=== PATIENT | female | born 1970 | race Caucasian/White ===

== ENCOUNTER 2023-05-13 14:52 | Outpatient (CLI) | payer BC, SELFPAY | END 2023-05-13 14:53 | disposition home or self-care (01) | LOC: NFLDREF 05-15 06:16 | PROVIDERS: Visit Provider Otolaryngology | DX: J32.9 Chronic sinusitis, unspecified (principal) | CPT/HCPCS: 82784; 82785; 82787; 85025 ==

== ENCOUNTER 2023-05-28 16:00 | Outpatient (CLI) | payer BC, SELFPAY ==
--- NOTE | 2023-05-28 16:00 | CRLHL7_ITS ---
For Patients: As a result of the Century Cures Act, medical imaging exams and procedure reports are released immediately into your electronic medical record. You may view this report before your referring provider. If you have questions, please contact your health care provider. INDICATION: Chronic sinusitis. TECHNIQUE: Noncontrast CT images acquired through the paranasal sinuses. COMPARISON: CT sinus 07/23/2018. FINDINGS: No air-fluid levels to suggest acute sinusitis. Small left maxillary sinus retention cyst has slightly increased in size. Minimal mucosal thickening in the maxillary sinuses. The ethmoid infundibula are widely patent. The frontal sinuses and frontal recesses are clear. Minimal mucosal thickening in the ethmoid air cells. Minimal left sphenoid sinus mucosal thickening. The right sphenoid sinus is clear. The sphenoethmoidal recesses are widely patent. Mild 2 mm leftward nasal septal deviation. No nasal cavity masses. The mastoid air cells are clear. IMPRESSION: 1. Minimal paranasal sinus mucosal disease. No air-fluid levels to suggest acute sinusitis. 2. Small left maxillary sinus retention cyst has slightly increased in size. 3. Mild leftward nasal septal deviation. Please note that all CT scans at this facility use dose modulation, iterative reconstruction, and/or weight-based dosing when appropriate to reduce radiation dose to as low as reasonably achievable. Dictated by Willy Soto MD @ 05/28/2023 4:43:10 PM (Electronically Signed)
== END 2023-05-28 16:01 | disposition home or self-care (01) ==
LOC: CT 16:01
PROVIDERS: PCP Family Medicine; Visit Provider Otolaryngology
DX: J32.9 Chronic sinusitis, unspecified (principal); J32.0 Chronic maxillary sinusitis; J34.2 Deviated nasal septum
CPT/HCPCS: 70486

== ENCOUNTER 2024-06-19 15:23 | Emergency (ER) | payer BC, SELFPAY ==
[2024-06-19 15:28] VITALS: BP 127/77; RESP 18; TEMP 36.8; O2SAT 96; BMI 34.3
--- NOTE | 2024-06-19 16:09 | ED.GENADULT ---
HPI - General Adult General Time Seen by Provider: 16:10 Date Seen: 06/19/24 Chief complaint: Hip Injury/Pain Stated complaint: R hip pain Time Seen by Provider: 06/19/24 16:09 Source: patient and RN notes reviewed Mode of arrival: ambulatory Limitations: no limitations History of Present Illness HPI narrative: This 54-year-old female is coming in with a lump on her right hip that she is concerned about. She started noticing some pain in the right hip area, started to radiate into her buttock and back low back area. The pain does go all the way down the leg to the foot. She feels that outer thigh feels numb and tingly. She has no loss of motor, no bowel or bladder issues. She has had no fevers, no noted trauma. She is a nonsmoker, no history of cancer. She started palpating and found a small little lump in the outer right hip area that is painful. She will feel the pain go all the way down the leg, it is starting to bother her now as she is sitting here, she notices it when she is sitting quite a bit, it is starting to hurt with walking at times. She has no history of sciatica. Her medications are reviewed. She does have a follow-up appointment with her primary care provider in 2 weeks time. Related Data Home Medications ?Medication ?Instructions ?Recorded ?Confirmed cholecalciferol (vitamin D3) 125 5,000 unit PO DAILY 05/09/23 06/19/24 mcg (5,000 unit) capsule cyclobenzaprine 10 mg tablet 10 mg PO .Bedtime as needed PRN 05/09/23 07/04/23 lansoprazole 30 mg capsule,delayed 30 mg PO BID 05/09/23 07/04/23 release mometasone 50 mcg/actuation nasal 2 spray intranasal QDAY 05/09/23 07/04/23 spray potassium chloride 20 mEq 10 meq PO BID 05/09/23 06/19/24 tablet,extended release(part/cryst) triamterene 100 mg capsule 100 mg PO 05/09/23 07/04/23 venlafaxine 37.5 mg 37.5 mg PO DAILY 05/09/23 07/04/23 capsule,extended release 24 hr Previous Rx's ?Medication ?Instructions ?Recorded azithromycin 250 mg tablet See Rx Instructions PO .COMPLEX #6 07/04/23 (Zithromax Z-Carlitos) tabs cyclobenzaprine 10 mg tablet 10 mg PO TID PRN muscle spasm #30 06/19/24 tabs prednisone 20 mg tablet 20 mg PO BID #10 tabs 06/19/24 Allergies Allergy/AdvReac Type Severity Reaction Status Date / Time morphine Allergy Unknown Verified 07/04/23 13:29 Penicillins Allergy Unknown Verified 07/04/23 13:29 amoxicillin Allergy Unknown Uncoded 07/04/23 13:29 Dust Allergy Unknown Uncoded 07/04/23 13:29 Review of Systems Status of ROS: Reports: 6 or more systems reviewed and unremarkable except as noted in History and below Exam Const: Vital Signs, click to edit/add: Vital Signs - 24 hr 06/19/24 15:28 Temperature 98.2 F Respiratory Rate 18 Blood Pressure [Ri ght Upper Arm] 127/77 Pulse Oximetry 96 Oxygen Delivery Me thod Room Air This 54-year-old female was standing in the room when I came in, did inspect her back, buttocks and legs, note no visible difference. She does complain of some midline tenderness along her lower lumbar spine, can palpate into the right buttock and do not feel any mass. I did palpate over her right hip area and could not feel anything. We did have her lie down, she palpated the right anterolateral hip area, there is a small subcutaneous maybe 1 cm mobile non fluctuant lesion, no overlying skin erythema or change. This seems like it might be a small lipoma based on evaluation clinically. She has no pain with internal external rotation of her hip, negative straight leg raising bilaterally. Strength is 5/5 through hip flexors, extensors, knee extension and flexion, dorsiflexion plantar flexion and throughout dorsiflexion and plantar flexion of toes. Skin is warm and dry, distal pulses are normal. She does state it feels somewhat numb and tingly over her right lateral hip skin area but still can feel me touch. Documenting provider has reviewed patient's vital signs: yes Course Course ED Course: Reviewed with patient that I think her skin lesion is unrelated to her leg symptoms, this would seem to be consistent with sciatica. My guess is that she started having the pain in found this little lesion in the hip area, they could have come on coincidentally together. This lesion is quite small, do think that it is appropriate to follow clinically and follow up with her primary care provider. I do not think that this warrants an emergent MSK ultrasound at this time. We will get basic imaging of her lumbar spine. Discussed degenerative disc disease and disc pathology. Ultimately MRI a is the gold standard but she does not need this emergently, has no red flags or emergent clinical changes. Will get an idea if there is degenerative changes with plain x-rays. Will discuss recommendations for pain management with her once we have seen the x-rays. Reevaluation(s) Time of Reevaluation #1: 17:07 Reevaluation #1: Have reviewed with an her imaging report. She was aware that she did have scoliosis. We did discuss the degenerative changes on the x-ray as well. She will try prednisone, Flexeril, baseline Tylenol and supplemental ibuprofen. She is only tried Tylenol No. 3 for pain management ever, has worked for her without significant side effects in the past. We will send her a prescription of Tylenol No. 3 to be filled if her symptoms are problematic or it is taking a bit for the prednisone to kick in. Given her known underlying changes in her back, would consider MRI of this patient in she can discuss this with her primary. Have given her hand written prescription for Tylenol No. 3, 1-2 every 6-8 hours as needed, 10 prescribed without refills. She is aware to substitute Tylenol No. 3 for a Tylenol dose and to not exceed Tylenol dosing restrictions. Vital Signs Vital signs: Initial Vital Signs Temperature 98.2 F 06/19/24 15:28 Temperature Source Temporal Artery Scan 06/19/24 15:28 Respiratory Rate 18 06/19/24 15:28 Blood Pressure 127/77 06/19/24 15:28 Blood Pressure Mean 93 06/19/24 15:28 Blood Pressure Position Sitting 06/19/24 15:28 Pulse Oximetry 96 06/19/24 15:28 Oxygen Delivery Method Room Air 06/19/24 15:28 Vital Signs Temperature 98.2 F 06/19/24 15:28 Respiratory Rate 18 06/19/24 15:28 Blood Pressure 127/77 06/19/24 15:28 Pulse Oximetry 96 06/19/24 15:28 Oxygen Delivery Method Room Air 06/19/24 15:28 Temperature 98.2 F 06/19/24 15:28 Respiratory Rate 18 06/19/24 15:28 Blood Pressure 127/77 06/19/24 15:28 Pulse Oximetry 96 06/19/24 15:28 Oxygen Delivery Method Room Air 06/19/24 15:28 Medical Decision Making Imaging Data XR lumbar spine: Attestation: I have reviewed the pertinent imaging results. Radiologist's impression: Patient: MAXIMO FAUST Facility:?[facility] Patient ID:?[id number] Site Patient ID:?[id number]. Site :?[id number] Study:?XRay-Spine Lumbar -06/19/2024 4:35:22 PM Ordering Physician:?Zen Merrill Final Report: INDICATION: Lower back pain. TECHNIQUE: Lumbar spine 3 view. COMPARISON: None. FINDINGS: Bones: No evident acute fracture or traumatic subluxation. There is a lumbar levoscoliosis measuring 13 degrees between the superior endplate of L1 and inferior endplate of L4. Joints: Multilevel facet arthropathy in the lower lumbar spine. Multilevel anse-la-gajnqohj intervertebral disc height loss most pronounced at L2-3. Soft tissues: Unremarkable. Dictated by Wyatt Gee MD @ 06/19/2024 4:55:45 PM (Electronic Signature) Discharge Plan Discharge Clinical Impression: Lump of skin of lower extremity, Acute right-sided back pain with sciatica Instructions: Lumbar Radiculopathy (ED), Lower Back Exercises (ED), Lipoma (ED), Soft Tissue Mass (ED) Additional Instructions: The small lump area in the skin outside your right hip maybe something like a lipoma. Would continue to monitor this and certainly pointed out at follow-up with your primary care provider. If it is rapidly growing, develops fever with this or redness over the site, do recommend re-evaluation in the interim. Start with prednisone for anti-inflammatory affects, do recommend taking with food. Can use the muscle relaxant per prescription, this may help with pain management as well. Do Tylenol 1000 mg baseline for pain, can supplement with ibuprofen per bottle directions. If these measures are not working, can substitute the Tylenol 3 in for the Tylenol. Both the muscle relaxant and Tylenol No. 3 can be sedating and altering, do not recommend operating machinery or driving while using. Follow-up with your primary care provider as scheduled, do recommend consideration of MRI in your situation as you do have underlying back issues. Activity Level: Activity as Tolerated Prescriptions: New prednisone 20 mg tablet 20 mg PO BID Qty: 10 0RF cyclobenzaprine 10 mg tablet 10 mg PO TID PRN (Reason: muscle spasm) Qty: 30 0RF No Action cholecalciferol (vitamin D3) 125 mcg (5,000 unit) capsule 5,000 unit PO DAILY triamterene 100 mg capsule 100 mg PO lansoprazole 30 mg capsule,delayed release(DR/EC) 30 mg PO BID Rx Instructions: TAKE 30 MINUTES PRIOR TO BREAKFAST OR FIRST MAIN MEAL OF THE DAY potassium chloride 20 mEq tablet,ER particles/crystals 10 meq PO BID mometasone 50 mcg/actuation spray,non-aerosol 2 spray intranasal QDAY Rx Instructions: administer into each nostril venlafaxine 37.5 mg capsule,extended release 24hr 37.5 mg PO DAILY cyclobenzaprine 10 mg tablet 10 mg PO .Bedtime as needed PRN azithromycin [Zithromax Z-Carlitos] 250 mg tablet See Rx Instructions PO .COMPLEX Qty: 6 0RF Rx Instructions: For 250 mg dose pack: take 500 mg today (day 1), then 250 mg for 4 days (days 2-5) PO Follow Up/Referrals: Ivelisse Nina [employer] [Primary Care Provider] - Stand Alone Forms: [employer] Info Instructions
--- NOTE | 2024-06-19 16:19 | CRLHL7_ITS ---
For Patients: As a result of the Century Cures Act, medical imaging exams and procedure reports are released immediately into your electronic medical record. You may view this report before your referring provider. If you have questions, please contact your health care provider. INDICATION: Lower back pain. TECHNIQUE: Lumbar spine 3 view. COMPARISON: None. FINDINGS: Bones: No evident acute fracture or traumatic subluxation. There is a lumbar levoscoliosis measuring 13 degrees between the superior endplate of L1 and inferior endplate of L4. Joints: Multilevel facet arthropathy in the lower lumbar spine. Multilevel tbdq-er-npyqsloa intervertebral disc height loss most pronounced at L2-3. Soft tissues: Unremarkable. Dictated by Wyatt Gee MD @ 06/19/2024 4:55:45 PM (Electronically Signed)
--- OUTSIDE RECORDS SUMMARY | 2024-06-19 17:14 | XMS_ITS | Clinical Summary ---
Author Organization [employer] [facility] Address [place], [place] [address] Care Team Providers Care Pharmacy Informaticist Name Role Phone Ivelisse Nina NP Primary Care Provider [phone] Allergies Active Allergy Reactions Criticality Noted Date Comments House Dust Runny Nose 07/20/2009 Grass Pollen *Unknown 10/18/2023 Mold Extracts Runny Nose 03/30/2014 Penicillins Rash 03/21/2006 Ragweed Pollen *Unknown 10/18/2023 Tree And Shrub Pollen *Unknown 10/18/2023 Medications Medication Sig Dispensed Refills Start Date End Date Status Cholecalciferol, Vitamin D3, (VITAMIN D-3) 5,000 unit tabIndications:Vit calvo D deficiency Take 1 tablet by mouth once daily. 5 days a week 0 10/26/2015 Active fluticasone (50 mcg per actuation) nasal solution (FLONASE)Indicatio ns:Chronic rhinitis Inhale 1 [place] into both nostrils once daily. 1 Bottle 09/01/2019 Active famotidine (PEPCID) 40 mg tabletIndications: Gastroesophageal reflux disease, unspecified whether esophagitis present TAKE 1/2 TABLET(20 MG) BY MOUTH TWICE DAILY 90 Tablet 03/07/2023 Active montelukast (SINGULAIR) 10 mg tabletIndications: Allergic rhinitis due to other allergic trigger, unspecified seasonality TAKE 1 TABLET(10 MG) BY MOUTH AT BEDTIME 90 Tablet 03/07/2023 Active potassium chloride (KLOR-CON M20) 20 mEq extended-release tablet (part/cryst)Indica tions:Hypokalemia Take 1 Tablet (20 mEq) by mouth two times daily with meals. Extra dose with lasix as needed. 180 Tablet 3 10/18/2023 Active triamterene-hydroc hlorothiazide, 37.5-25 mg, (DYAZIDE) 37.5-25 mg capsuleIndications :Peripheral edema Take 1 Capsule by mouth every morning. 90 Capsule 3 10/18/2023 Active ciprofloxacin HCl (CIPRO) 500 mg tabletIndications: Recurrent UTI TAKE 1 TABLET BY MOUTH EVERY DAY AFTER INTERCOURSE 30 Tablet 10/18/2023 Active lansoprazole (PREVACID) 30 mg capsuleIndications :Gastroesophageal reflux disease without esophagitis Take 1 Capsule (30 mg) by mouth two times daily before meals. 180 Capsule 2 01/24/2024 Active predniSONE (DELTASONE) 20 mg tabletIndications: Vestibular neuronitis of both ears 40 mg qd for 3 days, then 20 mg mg qd for 3 days, then 10 mg qd for 4 days. 11 Tablet 05/08/2024 Active meclizine (ANTIVERT) 25 mg tabletIndications: Vertigo Take 1 Tablet (25 mg) by mouth 3 times daily if needed for Vertigo. 30 Tablet 05/08/2024 Active Active Problems Problem Noted Date Diagnosed Date Asthma, mild intermittent 10/18/2023 Hypokalemia 10/18/2023 Allergic rhinitis 10/18/2023 Overview (10/18/2023): on allergy shots every 4 weeks Hyperlipidemia 01/29/2020 Chronic rhinitis 12/01/2018 Family hx colonic polyps 08/14/2014 Vitamin D deficiency 04/12/2014 Mole of skin 08/24/2013 Environmental allergies 08/07/2010 Overview (08/07/2010): On immunotherapy Peripheral edema 06/06/2010 GERD (gastroesophageal reflux disease) 9 Overview (02/11/2020): EGD 01/2009 Reactive gastropathy EGD 01/2020 normal, continue acid medications Hiatal hernia 09/09/2008 Urinary tract infection, site not specified 10/2005 Resolved Problems Problem Noted Date Diagnosed Date Resolved Date Hypokalemia 04/18/2015 05/17/2016 Throat pain 05/01/2010 05/17/2016 Glossitis 12/02/2006 04/07/2009 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 03/21/2006 04/07/2009 Encounters Date Type Department Care Team Description 06/18/2024 Nurse Triage [address] [address] Ivelisse Nina NP Hip Pain/problem 06/09/[address] [address] Ivelisse Nina NP Referral (Insurance referral) 05/08/2024 3:10 PM CDT Office Visit [facility] [address] [place] [address] Jemima Paul PA Dizzy (Fairly constant dizziness since yesterday-no nausea or headaches-yesterday had to be careful so she didn't fall-worse with movement, lightheaded) 05/08/2024 Travel 05/08/2024 Nurse Triage [address] [address] Ivelisse Nina NP Dizziness 03/26/[address] [address] Ivelisse Nina NP Referral from Last 3 Months Immunizations Name Administration Dates Next Due COVID-19 vaccine (Moderna 100mcg/0.5mL) PF, MDV 11/17/2020,10/20/2020 Td (Age >=7 Years) 02/01/1999 Tdap 10/18/2023,10/21/2013 Tuberculin (PPD) 04/06/2009 Family History Medical History Relation Name Comments Diabetes Father Stroke Father Cancer-colon Maternal Aunt 1 Cancer-breast Maternal Aunt 2 Cancer-breast Maternal Grandmother Cancer-breast Mother Heart Disease Paternal Grandfather Relation Name Status Comments Father Renay Sierra's Maternal Aunt 1 Maternal Aunt 2 Maternal Grandmother Mother Alive Paternal Grandfather Social History Tobacco Use Types Packs/Day Years Used Date Smoking Tobacco: Never Smokeless Tobacco: Never Tobacco Cessation:Counseling Given: Yes Alcohol Use Standard Drinks/Week Comments No 0 (1 standard drink = 0.6 oz pur e alcohol) on occassion. PHQ-2 Answer Date Recorded PHQ-2 TOTAL SCORE 0 10/18/2023 Social Connections Answer Date Recorded Do you often feel lonely or isolated from those around you? 0 05/08/2024 Financial Resource Strain Answer Date R ecorded Difficulty of Paying Living Expenses 3 05/08/2024 Difficulty of Paying Living Expenses Not on file 05/08/2024 Food Insecurity Answer Date Recorded Do you worry your food will run out before you are able to buy more? 1 05/08/2024 Transportation Needs Answer Date Record ed Does lack of transportation keep you from medica l appointments? 1 05/08/2024 Does lack of transportation keep you from work, meetings or getting things that you need? 1 05/08/2024 Housing Stability Answer Date Recorded What is your housing situation today? 1 05/08/2024 Sex and Gender Information Value Date Recorded Sex Assigned at Not on file Gender Identity Not on file Sexual Orientation Not on file Obstetrics History Para Term AB IAB SAB Ectopic Multiple Livin g Live Births 6 2 2 0 1 0 1 0 0 2 3 Date Outcome GA Total Labor Labor/2nd/3rd Weight Sex Type Anes PTL Jacquie A1 A5 Name Clin SAB Term Term 05/08 39w 0d 12h 00m/ 2.92 kg (6 lb 7 oz) F C-Secti on Livin g stepnegro beatriz 11/12 40w 0d 12h 00m/ 3.69 kg (8 lb 2 oz) F Induced Livin g rebecc ca 05/19 SPONTAN EOUS Decea sed Last Filed Vital Signs Vital Sign Reading Time Taken Comments Blood Pressure 117/76 05/08/2024 3:20 PM CDT Pulse 86 05/08/2024 3:20 PM CDT Temperature 36.8 ??C (98.2 ??F) 09/04/2023 3:05 PM CS T Respiratory Rate 16 11/01/2022 10:35 AM CDT Oxygen Saturation 96% 05/08/2024 3:20 PM CDT Inhaled Oxygen Concentration - - Weight 95.7 kg (211 lb) 05/08/2024 3:20 PM CDT Height 162.6 cm (5' 4) 10/18/2023 11:44 AM PUBLIC HEALTH DIETITIAN Body Mass Index 36.22 10/18/2023 11:44 AM PUBLIC HEALTH DIETITIAN Plan of Treatment Upcoming Encounters Date Type Department Care Team (Late st Contact Info) Description 07/07/2024 1:55 PM PUBLIC HEALTH DIETITIAN Office Visit [facility] [address] [facility] [place] [phone] Ivelisse Nina NP [address] [facility] [place] [place] [address] 07/21/2024 8:00 AM PUBLIC HEALTH DIETITIAN Appointment [facility] [address] [facility] [address] Health Maintenance Due Date Last Done Comments Zoster (shingles) series for age 50+ (1 of 2) 02/03/2020 COVID-19 vaccine series (2023- season) 2024 07/10/2021, 11/17/2020, 10/20/2020 Influenza for age 50-64 04/19/2024 Mammogram for age 45-75 06/13/2024 06/13/20 23, 06/06/2022, 04/07/2021, Additional history exists BMI (ht and wt on same day) for age 18+ 10/17/2024 10/18/2023, 12/27/2021, 06/14/2021, Additional history exists Depression screening for age 12+ 10/17/2024 10/18/2023, 12/27/2021, 11/09/2020, Additional history exists Lipids for age 45-75 10/17/2028 10/18/2023, 12/27/2021, 01/29/2020, Additional history exists Colonoscopy through age 75 02/09/203002/09, 02/10/2020, 02/10/2020, Additional history exists Tetanus booster 10/17/2033 10/18/2023, 12/2013, 02/01/1999 HIV for age 15-65 Completed 10/22/2022 Hepatitis C screening for age 18-79 Completed 10/22/2022 Tdap Completed 10/18/2023, 10/21/2013 Pneumococcal series for age 6-64 Aged Out No longer eligible based on patient's age to complete this topic Procedures Procedure Name Priority Date/Time Associated Diagnosis Comments CBC WITH AUTO DIFFERENTIAL Routine 05/08/2024 12:00 AM CDT MAGNESIUM Routine 05/08/2024 12:00 AM CDT Vertigo TSH Routine 05/08/2024 12:00 AM CDT Vertigo C-REACTIVE PROTEIN Routine 05/08/2024 12 :00 AM CDT Vertigo COMP METABOLIC PANEL Routine 05/08/2024 12:00 AM CDT Vertigo LIPID PANEL W REFLEX MEASURED LDL Routine 10/18/2023 12:28 PM PUBLIC HEALTH DIETITIAN Routine [facility] XR MAMMO LIBORIO BILAT SCREEN Routine 06/13/2023 3:57 PM CDT Encounter for other screening for malignant neoplasm of breast LC HIV-1/O/2, 4TH GENERATION Routine 10/22/2022 2:11 PM PUBLIC HEALTH DIETITIAN Screening for HIV (human immunodeficiency virus) LC HCV ANTIBODY RFX TO QUANT PCR Routine 10/22/2022 2:11 PM PUBLIC HEALTH DIETITIAN Encounter for hepatitis C screening test for low risk patient COLONOSCOPY SCREENING Routine 02/10/2020 8:54 AM CDT Encounter for screening colonoscopy from Last 3 Months or Most Recently Relevant to Health Maintenance Results * CBC WITH AUTO DIFFERENTIAL (05/08/2024 12:00 AM CDT) WHITE BLOOD CELL COUNT 5.3 3.8 - 10.8 Thousand/u L [facility] RED BLOOD CELL COUNT 4.90 3.80 - 5.10 Million/uL [facility] HEMOGLOBIN 14.5 11.7 - 15.5 g/dL [facility] HEMATOCRIT 44.2 35.0 - 45.0 % [facility] MCV 90.2 80.0 - 100.0 fL [facility] MCH 29.6 27.0 - 33.0 pg [facility] MCHC 32.8 32.0 - 36.0 g/dL [facility] RDW 14.3 11.0 - 15.0 % [facility] PLATELET COUNT 255 140 - 400 Thousand/u L [facility] MPV 10.9 7.5 - 12.5 fL [facility] ABSOLUTE NEUTROPHILS 2,555 1,500 - 7,800 cells/uL [facility] ABSOLUTE LYMPHOCYTES 2,337 850 - 3,900 cells/uL [facility] ABSOLUTE MONOCYTES 307 200 - 950 cells/uL [facility] ABSOLUTE EOSINOPHILS 80 15 - 500 cells/uL [facility] ABSOLUTE BASOPHILS 21 0 - 200 cells/uL [facility] NEUTROPHILS 48.2 % [facility] LYMPHOCYTES 44.1 % [facility] MONOCYTES 5.8 % [facility] EOSINOPHILS 1.5 % [facility] BASOPHILS 0.4 % [facility] 05/08/2024 05/08/2024 3:4 5 PM CDT Jemima LOPES HEMATOLOGY Performing Organization Address City/State/[facility] Co de Phone Number [employer] [facility] [address] [place] [address], [employer] [facility] [address] [place] [address] * TSH (05/08/2024 12:00 AM CDT) TSH 1.66 mIU/L [facility] [place] Comment: ?Reference Range ?> or = 20 Years ??0.40-4.50 ? Ranges ?First trimester ?0.26-2.66 ?Second trimester ?? 0.55-2.73 ?Third trimester ?0.43-2.91 Blood BLOOD SPECIMEN / Unknown 05/08/2024 05/08/2024 3:45 PM CDT Jemima LOPES CHEMISTRY Performing Organization Address [facility]/ZIP Co de Phone Number [facility] [address] [place] [address], [place] [phone] [facility] [address] [place] [address] * C-REACTIVE PROTEIN (05/08/2024 12:00 AM CDT) C-REACTIVE PROTEIN 5.0 <8.0 mg/L [facility] Blood BLOOD SPECIMEN / Unknown 05/08/2024 05/08/2024 3:45 PM CDT Jemima LOPES CHEMISTRY Performing Organization Address [facility] Co de Phone Number [facility] [address] [place] [address], [place] [phone] [facility] [address] [place] [address] * MAGNESIUM (05/08/2024 12:00 AM CDT) MAGNESIUM 2.1 1.5 - 2.5 mg/dL [facility] Blood BLOOD SPECIMEN / Unknown 05/08/2024 05/08/2024 3:45 PM CDT Jemima LOPES CHEMISTRY Performing Organization Address [facility]/ZIP Co de Phone Number [facility] [address] [place] [address], [place] [phone] [facility] [address] [place] [address] * (ABNORMAL) COMP METABOLIC PANEL (05/08/2024 12:00 AM CDT) GLUCOSE 82 65 - 99 mg/dL [facility] Comment: ? Fasting reference interval UREA NITROGEN (BUN) 19 7 - 25 mg/dL [facility] CREATININE 1.01 0.50 - 1.03 mg/dL [facility] EGFR 66 > OR = 60 mL/min/1. 73m2 [facility] BUN/CREATININE RATIO SEE NOTE: (calc) [facility] Comment: ?? Not Reported: BUN and Creatinine are within ?? reference range. ? SODIUM 140 135 - 146 mmol/L [facility] POTASSIUM 4.1 3.5 - 5.3 mmol/L [facility] CHLORIDE 102 98 - 110 mmol/L [facility] CARBON DIOXIDE 26 20 - 32 mmol/L [facility] CALCIUM 9.6 8.6 - 10.4 mg/dL [facility] PROTEIN, TOTAL 7.2 6.1 - 8.1 g/dL [facility] ALBUMIN 4.6 3.6 - 5.1 g/dL [facility] GLOBULIN 2.6 1.9 - 3.7 g/dL (calc) [facility] ALBUMIN/GLOBULIN RATIO 1.8 1.0 - 2.5 (calc) [facility] BILIRUBIN, TOTAL 0.4 0.2 - 1.2 mg/dL [facility] ALKALINE PHOSPHATASE 94 37 - 153 U/L [facility] AST 43(H) 10 - 35 U/L [facility] ALT 74(H) 6 - 29 U/L [facility] Blood BLOOD SPECIMEN / Unknown 05/08/2024 05/08/2024 3:45 PM CDT Jemima LOPES CHEMISTRY [facility] [address] [place] [address], [facility] [address] [place] [address] * (ABNORMAL) LIPID PANEL W REFLEX MEASURED LDL (10/18/2023 12:28 PM PUBLIC HEALTH DIETITIAN) CHOLESTEROL,TOTAL 226(H) 100 - 199 mg/dL 10/18/2023 1:21 PM [facility] Comment: Cholesterol, Total Reference Ranges Desirable <200 mg/dL Borderline 200-239 mg/dL High >=240 mg/dL TRIGLYCERIDES 202(H) <150 mg/dL 10/18/2023 1:21 PM [facility] HDL CHOLESTEROL 48 >40 mg/dL 1:21 PM [facility] NON-HDL CHOLESTEROL 178(H) <145 mg/dl 10/18/2023 1:21 PM [facility] CHOL/HDL RATIO 4.71(H) <4.50 10/18/2023 1:21 PM [facility] LDL CHOLESTEROL 138(H) <=130 mg/dL 10/18/2023 1:21 PM [facility] VLDL CHOLESTEROL 40(H) <=30 mg/dL 10/18/2023 1:21 PM [facility] PROVIDER ORDERED STATUS RANDOM 10/18/2023 1:21 PM [facility] Blood BLOOD SPECIMEN / Unknown Venipuncture / Unknown 10/18/2023 12:28 PM PUBLIC HEALTH DIETITIAN 10/18/2023 12:28 PM PUBLIC HEALTH DIETITIAN Ivelisse Nina NP CHEMISTRY [facility] [address] [place] [address] * XR MAMMO LIBORIO BILAT SCREEN (06/13/2023 3:57 PM CDT) Anatomical Region Laterality Modality BREASTS, Breast Left, Breast Right Bilateral Mammography Impressions 06/14/2023 7:03 AM CDT ??There is no radiographic evidence for malignancy. ??Recommend annual mammograms. MAMMOGRAM ASSESSMENT: ??ACR 2 Benign PATIENTS: You will also receive a letter with your examination results in an easy to read format. ??If you have questions about your results, please contact your referring provider. Narrative 06/14/2023 7:03 AM CDT For Patients: As a result of the Century Cures Act, medical imaging exams and procedure reports are released immediately into your electronic medical record. You may view this report before your referring provider. If you have questions, please contact your health care provider. XR MAMMO LIBORIO BILAT SCREEN [[id number]] CLINICAL HISTORY: ??This is an asymptomatic 53 y.o. patient. INDICATION FOR EXAM: Mammogram Screening. TECHNIQUE: CC & MLO views were obtained. ??This study was evaluated with the assistance of Computer-Aided Detection. Breast Tomosynthesis was used in interpretation. COMPARISON FILMS: Yes 06/06/22 [employer] ?? FINDINGS: ??The breasts have scattered areas of fibroglandular density. ??No suspicious masses or microcalcifications. ??There are benign appearing mass(es) and Post biopsy changes of right breast. Ivelisse Nina NP MAMMO * LC HCV ANTIBODY RFX TO QUANT PCR (10/22/2022 2:11 PM PUBLIC HEALTH DIETITIAN) HCV Ab Non Reactive Non Reactive 10/25/2022 10:06 PM PUBLIC HEALTH DIETITIAN [facility] Blood BLOOD SPECIMEN / Unknown Venipuncture / Unknown 10/22/2022 2:11 PM PUBLIC HEALTH DIETITIAN 10/22/2022 2:13 PM PUBLIC HEALTH DIETITIAN Narrative [facility] ([facility]) - 10/25/2022 10:06 PM PUBLIC HEALTH DIETITIAN Performed at: ??01 - [facility] [employer] [place], [place] ??[id number] [employer] Director: ePter Larsen MD, Phone: ??[phone] Ivelisse Nina NP LABORATORY [facility] ([facility]) [address] [place] [address], * LC HIV-1/O/2, 4TH GENERATION (10/22/2022 2:11 PM PUBLIC HEALTH DIETITIAN) HIV Scr 4th Gen Non Reactive Non Reactive 10/25/2022 10:06 PM PUBLIC HEALTH DIETITIAN [facility] Comment: HIV Negative HIV-1/HIV-2 antibodies and HIV-1 p24 antigen were NOT detected. There is no laboratory evidence of HIV infection. Blood BLOOD SPECIMEN / Unknown Venipuncture / Unknown 10/22/2022 2:11 PM PUBLIC HEALTH DIETITIAN 10/22/2022 2:13 PM PUBLIC HEALTH DIETITIAN Narrative [facility] ([facility]) - 10/25/2022 10:06 PM PUBLIC HEALTH DIETITIAN Performed at: ??01 - [address] ??[id number] [employer] Director: Peter Larsen MD, Phone: ??[phone] Ivelisse Nina NP LABORATORY [facility] ([facility]) [address] [place] [address] * COLONOSCOPY SCREENING (02/10/2020 8:54 AM CDT) Jovan Morton MD GI PROCEDURE ORD from Last 3 Months or Most Recently Relevant to Health Maintenance Advance Directives * Full Code (Latest Code Status on File) Date Activated Date Inactivated Comments 08/09/2014 6:48 PM 08/10/2014 4:46 PM Care Teams Pharmacy Informaticist Relationship Specialty Start Date End Date Ivelisse Nina NP [address] [facility] [place] [address] PCP - General Family Practice 09/08/15
== END 2024-06-19 17:30 | disposition home or self-care (01) ==
PROVIDERS: Emergency Provider Family Medicine; PCP Family Medicine
DX: M54.41 Lumbago with sciatica, right side (principal); D17.23 Benign lipomatous neoplasm of skin and subcutaneous tissue of right leg
CPT/HCPCS: 72100; 99283

== ENCOUNTER 2025-03-06 21:32 | Emergency (ER) | payer BC, SELFPAY ==
[2025-03-06] VITALS (10 sets, daily range): BP systolic 115–136; BP diastolic 57–82; PULSE 76–86; RESP 10–18; TEMP 36.1; O2SAT 96–98; BMI 36.9
--- OUTSIDE RECORDS SUMMARY | 2025-03-06 21:34 | XMS_ITS | Clinical Summary ---
Author Organization [facility] Address [address] [place] [id number] Care Team Providers Care Point Of Sale Associate Name Role Phone Ivelisse Nina NP Primary Care Provider [phone] Allergies Active Allergy Reactions Criticality Noted Date Comments Amoxicillin *Unknown 07/04/2023 House Dust Runny Nose 07/20/2009 Grass Pollen *Unknown 10/18/2023 Mold Extracts Runny Nose 03/30/2014 Morphine *Unknown 07/04/2023 Penicillins Rash 03/21/2006 Ragweed Pollen *Unknown 10/18/2023 Tree And Shrub Pollen *Unknown 10/18/2023 Medications Cholecalciferol, Vitamin D3, (VITAMIN D-3) 5,000 unit tabIndications:Vi tamin D deficiency Take 1 tablet by mouth once daily. 5 days a week 0 10/26/19 16 Active fluticasone (50 mcg per actuation) nasal solution (FLONASE)Indicati ons:Chronic rhinitis Inhale 1 Garwin into both nostrils once daily. 1 Bottle 09/01/19 20 Active famotidine (PEPCID) 40 mg tabletIndications :Gastroesophageal reflux disease, unspecified whether esophagitis present TAKE 1/2 TABLET(20 MG) BY MOUTH TWICE DAILY 90 Tablet 03/07/20 23 Active ciprofloxacin HCl (CIPRO) 500 mg tabletIndications :Recurrent UTI TAKE 1 TABLET BY MOUTH EVERY DAY AFTER INTERCOURSE 30 Tablet 10/18/19 24 Active meclizine (ANTIVERT) 25 mg tabletIndications :Vertigo Take 1 Tablet (25 mg) by mouth 3 times daily if needed for Vertigo. 30 Tablet 05/08/20 24 Active zafirlukast (ACCOLATE) 20 mg tablet Take 20 mg by mouth two times daily after meals. 03/25/20 24 Active cyclobenzaprine (FLEXERIL) 10 mg tablet Take 10 mg by mouth 3 times daily if needed for Muscle Spasm. 06/19/20 24 Active methylPREDNISolon e (Medrol, Carlitos,) 4 mg tabletIndications :Low back pain radiating to right leg Take by mouth as instructed per packaging. 21 Tablet 07/07/20 24 Active triamterene-hydro chlorothiazide, 37.5-25 mg, (DYAZIDE) 37.5-25 mg capsuleIndication s:Peripheral edema Take 1 Capsule by mouth once daily in the morning. 90 Capsule 1 10/27/19 25 Active lansoprazole 30 mg capsuleIndication s:Gastroesophagea l reflux disease without esophagitis TAKE 1 CAPSULE(30 MG) BY MOUTH TWICE DAILY BEFORE MEALS 180 Capsule 2 10/27/19 25 Active gabapentin (NEURONTIN) 300 mg capsuleIndication s:Lumbar radiculopathy Take 1 Capsule (300 mg) by mouth at bedtime. 30 Capsule 2 10/29/19 25 Active celecoxib (CELEBREX) 200 mg capsuleIndication s:Gluteal tendonitis of right buttock Take 1 Capsule (200 mg) by mouth two times daily with meals. 60 Capsule 1 10/30/19 25 Active potassium chloride (KLOR-CON M20) 20 mEq extended-release tablet (part/cryst)Indic ations:Hypokalemi a TAKE 1 TABLET BY MOUTH TWICE DAILY WITH MEALS. TAKE EXTRA DOSE WITH LASIX NEEDED 120 Tablet 02/26/20 25 Active potassium chloride (KLOR-CON M20) 20 mEq extended-release tablet (part/cryst)Indic ations:Hypokalemi a TAKE 1 TABLET BY MOUTH TWICE DAILY WITH MEALS. TAKE EXTRA DOSE WITH LASIX NEEDED 180 Tablet 1 10/27/19 25 025 Discontin ued(*Avai lability/ Formulary change/Co st of medicatio n) Active Problems Problem Noted Date Diagnosed Date [...] Encounters Date Type Department Care Team Description 02/25/[address] [phone] Ivelisse Nina NP Refill Request (Potassium Chloride) 02/23/[address] [phone] Ivelisse Nina NP Refill Request (Potassium Chloride) 01/29/[address] [phone] Ivelisse Nina NP Referral (dermatology ) from Last 3 Months Immunizations Immunization Administration Dates Next Due COVID-19 vaccine (Moderna [...] is your housing situation today? 1 05/08/2024 Utilities Answer Date Recorded Do you have trouble paying f or utilities (for example, heat, electricity, water, phone)? 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 Not on file Not on file Not on file Not on file Not on file Not on file Not on file Obstetrics History Para Term [...] Sign Reading Time Taken Comments Blood Pressure 122/77 10/01/2024 2:49 PM DIRECTOR PUBLIC Pulse 91 10/01/2024 2:49 PM DIRECTOR PUBLIC Temperature 36.8 C (98.2 F) 10/01/2024 2:49 PM DIRECTOR PUBLIC Respiratory Rate 16 11/01/2022 10:35 AM CDT Oxygen Saturation 96% 10/01/2024 2:49 PM DIRECTOR PUBLIC Inhaled Oxygen Concentration - - Weight 94.9 kg (209 lb 3.2 oz) 07/07/2024 2:16 P M DIRECTOR PUBLIC Height 162.6 cm (5' 4) 10/18/2023 11:44 AM DIRECTOR PUBLIC Body Mass Index 35.91 10/18/2023 11:44 AM DIRECTOR PUBLIC Plan of Treatment Health Maintenance Due Date Last Done Comments Hepatitis B series for 19+ ( 1 of 3 - 19+ 3-dose series) 1989 Pneumococcal series for age 50+ (1 of 1 - PCV) 02/03/2020 Zoster (shingles) series for age 50+ (1 of 2) 02/03/2020 COVID-19 vaccine series ( season) 2024 07/10/2021, 11/17/2020, 10/20/2020 BMI (ht and wt on same day) for age 18+ 10/17/2024 10/18/2023, 12/27/2021, 06/14/2021, Additional history exists Depression screening for age 12+ 10/17/2024 10/18/2023, 12/27/2021, 11/09/2020, Additional history exists Influenza Vaccine (#1) 2025 Mammogram for age 45-75 07/21/2025 07/21/20, 06/13/2023, 06/06/2022, Additional history exists Lipids for age 45-75 10/17/2028 10/18/2023, 12/27/2021, 01/29/2020, Additional history exists Colonoscopy through age 75 02/09/203002/09, 02/10/2020, 02/10/2020, Additional history exists Tetanus booster 10/17/2033 10/18/2023, 03/0 12/2013, 02/01/1999 HIV for age 15-65 Completed 10/22/2022 Hepatitis C screening for ag e 18-79 Completed 10/22/2022 Procedures Procedure Name Priority Date/Time Associated Diagnosis Comments XR MAMMO LIBORIO BILAT SCREEN Routine 07/21/2024 8:09 AM DIRECTOR PUBLIC Encounter for screening mammogram for malignant neoplasm of breast LIPID PANEL W REFLEX MEASURED LDL Routine 10/18/2023 12:28 PM DIRECTOR PUBLIC Routine general medical examination at a health care facility LC HIV-1/O/2, 4TH GENERATION Routine 10/22/2022 2:11 PM DIRECTOR PUBLIC Screening for HIV (human immunodeficiency virus) LC HCV ANTIBODY RFX TO QUANT PCR Routine 10/22/2022 2:11 PM DIRECTOR PUBLIC Encounter for hepatitis C screening test for low risk patient COLONOSCOPY SCREENING Routine 02/10/2020 8:54 AM CDT Encounter for screening colonoscopy from Last 3 Months or Most Recently Relevant to Health Maintenance Results * XR MAMMO LIBORIO BILAT SCREEN (07/21/2024 8:09 AM DIRECTOR PUBLIC) Anatomical Region Laterality Modality BREASTS, Breast Left, Breast Right Bilateral Mammography Impressions 07/21/2024 8:43 AM DIRECTOR PUBLIC There is no radiographic evidence for malignancy. Recommend annual mammograms. MAMMOGRAM ASSESSMENT: ACR 2 Benign PATIENTS: You will also receive a letter with your examination results in an easy to read format. If you have questions about your results, please contact your referring provider. Narrative 07/21/2024 8:43 AM DIRECTOR PUBLIC For Patients: As a result of the 21st Century Cures Act, medical imaging exams and procedure reports are released immediately into your electronic medical record. You may view this report before your referring provider. If you have questions, please contact your health care provider. XR MAMMO LIBORIO BILAT SCREEN [[id number]] CLINICAL HISTORY: This is an asymptomatic 54 y.o. patient. INDICATION FOR EXAM: Mammogram Screening. TECHNIQUE: CC & MLO views were obtained. This study was evaluated with the assistance of Computer-Aided Detection. Breast Tomosynthesis was used in interpretation. COMPARISON FILMS: Yes 10/26/23 FINDINGS: There are scattered areas of fibroglandular density. No suspicious masses or microcalcifications. Post biopsy changes of right breast. 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 MAMMO Final Result * (ABNORMAL) LIPID PANEL W REFLEX MEASURED LDL (10/18/2023 12:28 PM DIRECTOR PUBLIC) CHOLESTEROL,TOTAL 226(H) 100 - 199 mg/dL 10/18/2023 1:21 PM [facility] Comment: Cholesterol, Total Reference Ranges Desirable <200 mg/dL Borderline 200-239 mg/dL High >=240 mg/dL TRIGLYCERIDES 202(H) <150 mg/dL 10/18/2023 1:21 PM [facility] HDL CHOLESTEROL 48 >40 mg/dL 1:21 PM [facility] NON-HDL CHOLESTEROL 178(H) <145 mg/dl 10/18/2023 1:21 PM [facility] CHOL/HDL RATIO 4.71(H) <4.50 10/18/2023 1:21 PM [facility] LDL CHOLESTEROL 138(H) <=130 mg/dL 10/18/2023 1:21 PM [facility] VLDL CHOLESTEROL 40(H) <=30 mg/dL 10/18/2023 1:21 PM [facility] PROVIDER ORDERED STATUS RANDOM 10/18/2023 1:21 PM [facility] Blood BLOOD SPECIMEN / Unknown Venipuncture / Unknown 10/18/2023 12:28 PM DIRECTOR PUBLIC 10/18/2023 12:28 PM DIRECTOR PUBLIC Ivelisse Nina NP CHEMISTRY Final Result [facility] [address] [place] [address] * LC HCV ANTIBODY RFX TO QUANT PCR (10/22/2022 2:11 PM DIRECTOR PUBLIC) HCV Ab Non Reactive Non Reactive 10/25/2022 10:06 PM DIRECTOR PUBLIC [facility] Blood BLOOD SPECIMEN / Unknown Venipuncture / Unknown 10/22/2022 2:11 PM DIRECTOR PUBLIC 10/22/2022 2:13 PM DIRECTOR PUBLIC Narrative [facility] ([facility]) - 10/25/2022 10:06 PM DIRECTOR PUBLIC Performed at: [address] [place] [id number] Elevator Erector: Peter Larsen MD, Phone: [phone] Ivelisse Nina NP LABORATORY Final Result [facility] ([facility]) [address] [place] [address], * HIV-1/O/2, 4TH GENERATION (10/22/2022 2:11 PM DIRECTOR PUBLIC) HIV Scr 4th Gen Non Reactive Non Reactive 10/25/2022 10:06 PM DIRECTOR PUBLIC [facility] ([facility]) Comment: HIV Negative HIV-1/HIV-2 antibodies and HIV-1 p24 antigen were NOT detected. There is no laboratory evidence of HIV infection. Blood BLOOD SPECIMEN / Unknown Venipuncture / Unknown 10/22/2022 2:11 PM DIRECTOR PUBLIC 10/22/2022 2:13 PM DIRECTOR PUBLIC Narrative [facility] ([facility]) - 10/25/2022 10:06 PM DIRECTOR PUBLIC Performed at: [address] [place] [id number] Elevator Erector: Peter Larsen MD, Phone: [phone] Ivelisse Nina NP LABORATORY Final Result Performing Organization Address City/[facility]/ZIP Co de Phone Number [facility] ([facility]) [address] [place] [address] * COLONOSCOPY SCREENING (02/10/2020 8:54 AM CDT) Jovan Morton MD GI PROCEDURE ORD Final Re sult from Last 3 Months or Most Recently Relevant to Health Maintenance Insurance [address] [place] [address] [facility] [address] [id number] [place] [address] [place] [id number] [facility] [address] [place] [id number] Advance Directives * Full Code (Latest Code Status on File) Date Activated Date Inactivated Comments 08/09/2014 6:48 PM 08/10/2014 4:46 PM Care Teams Point Of Sale Associate Relationship Specialty Start Date End Date Ivelisse Nina NP [address] [place] [address] PCP - General Family Practice 09/08/15
--- NOTE | 2025-03-06 21:50 | CRLHL7_ITS ---
For Patients: As a result of the Century Cures Act, medical imaging exams and procedure reports are released immediately into your electronic medical record. You may view this report before your referring provider. If you have questions, please contact your health care provider. INDICATION: Chest pain. TECHNIQUE: Chest 1 view. COMPARISON: None. FINDINGS: Cardiovascular: Heart size and pulmonary vasculature are within normal limits. Lungs and pleural spaces: The lungs are clear. No sign of pleural effusion. No pneumothorax identified. Bones and soft tissues: Mild elevation of the right hemidiaphragm. The bones are unremarkable. IMPRESSION: No acute cardiopulmonary findings. Dictated by Evelyn Robles MD @ 03/06/2025 10:18:24 PM (Electronically Signed)
--- NOTE | 2025-03-06 21:51 | ED.GENADULT ---
HPI - General Adult General Chief complaint: Unspecified Complaint, Adult Stated complaint: tingling/ numb R arm Time Seen by Provider: 03/06/25 21:45 History of Present Illness HPI narrative: Patient is a 55-year-old woman who presents with radicular symptoms down her right arm it occurred while she was driving tonight. Symptoms occurred approximately 2 hours ago. She has no chest pain no shortness a breath orthopnea no numbness no tingling no weakness. No difficulty with speech. A stroke scale 0. Patient's symptoms have resolved but she wanted to come in and be assessed. Patient has no history of any cardiovascular disease. Related Data Home Medications ?Medication ?Instructions ?Recorded ?Confirmed cholecalciferol (vitamin D3) 125 5,000 unit PO DAILY 05/09/23 06/19/24 mcg (5,000 unit) capsule cyclobenzaprine 10 mg tablet 10 mg PO .Bedtime as needed PRN 05/09/23 07/04/23 lansoprazole 30 mg capsule,delayed 30 mg PO BID 05/09/23 07/04/23 release mometasone 50 mcg/actuation nasal 2 spray intranasal QDAY 05/09/23 07/04/23 spray potassium chloride 20 mEq 10 meq PO BID 05/09/23 06/19/24 tablet,extended release(part/cryst) triamterene 100 mg capsule 100 mg PO 05/09/23 07/04/23 venlafaxine 37.5 mg 37.5 mg PO DAILY 05/09/23 07/04/23 capsule,extended release 24 hr Previous Rx's ?Medication ?Instructions ?Recorded azithromycin 250 mg tablet See Rx Instructions PO .COMPLEX #6 07/04/23 (Zithromax Z-Carlitos) tabs cyclobenzaprine 10 mg tablet 10 mg PO TID PRN muscle spasm #30 06/19/24 tabs prednisone 20 mg tablet 20 mg PO BID #10 tabs 06/19/24 Allergies Allergy/AdvReac Type Severity Reaction Status Date / Time morphine Allergy Unknown Verified 07/04/23 13:29 Penicillins Allergy Unknown Verified 07/04/23 13:29 amoxicillin Allergy Unknown Uncoded 07/04/23 13:29 Dust Allergy Unknown Uncoded 07/04/23 13:29 Review of Systems Status of ROS: Reports: 10 or more systems reviewed and unremarkable except as noted in History and below Exam Narrative: Exam Narrative: EXAM GENERAL: Patient appears comfortable and well. EYES: No scleral icterus. ENT: Tympanic membranes and oropharynx normal. THYROID: no thyroid nodules or thyromegaly. LYMPH: No supraclavicular or cervical lymphadenopathy. SKIN: Visible skin seen during exam normal or with benign process only. EXT: No dependent lower extremity pedal edema. HEART: Regular rate and rhythm with no murmurs, rubs, or gallops. LUNGS: Clear to auscultation bilaterally with no crackles or wheezes. ABD: Soft, non tender, non distended. PSYCH: Good eye contact, speech is not pressured. Neurologic cranial nerves 2-12 grossly intact no focal defects. Const: Vital Signs, click to edit/add: Vital Signs - 24 hr 03/06/25 21:36 03/06/25 22:15 03/06/25 22:17 Temperature 97.0 F L Pulse Rate 79 79 Pulse Rate [Left P ulse Oximeter] 76 Respiratory Rate 16 18 Blood Pressure 115/66 Blood Pressure [Ri ght Upper Arm] 136/82 Pulse Oximetry 98 96 97 Oxygen Delivery Me thod Room Air Course Course ED Course: Patient seen examined. I am unable to demonstrate any neurologic symptoms. EKG is completely normal upon my review. CBC comprehensive metabolic panel troponin chest x-ray pending. Again patient is now asymptomatic. Vital Signs Vital signs: Initial Vital Signs Temperature 97.0 F L 03/06/25 21:36 Temperature Source Temporal Artery Scan 03/06/25 21:36 Pulse Rate 76 03/06/25 21:36 Pulse Rhythm Regular 03/06/25 21:36 Respiratory Rate 16 03/06/25 21:36 Blood Pressure 136/82 03/06/25 21:36 Blood Pressure Mean 100 03/06/25 21:36 Blood Pressure Position Sitting 03/06/25 21:36 Pulse Oximetry 98 03/06/25 21:36 Oxygen Delivery Method Room Air 03/06/25 21:36 Vital Signs Temperature 97.0 F L 03/06/25 21:36 Pulse Rate 76 03/06/25 21:36 Respiratory Rate 16 03/06/25 21:36 Blood Pressure 136/82 03/06/25 21:36 Pulse Oximetry 98 03/06/25 21:36 Oxygen Delivery Method Room Air 03/06/25 21:36 Temperature 97.0 F L 03/06/25 21:36 Pulse Rate 79 03/06/25 22:17 Respiratory Rate 18 03/06/25 22:15 Blood Pressure 115/66 03/06/25 22:17 Pulse Oximetry 97 03/06/25 22:17 Oxygen Delivery Method Room Air 03/06/25 21:36 Medical Decision Making MDM Narrative Medical decision making narrative: Patient presents with likely radicular symptoms on the right arm. Symptoms had resolved prior to me seeing her. EKG chest x-ray electrolytes troponin all negative. And she remained asymptomatic during the time of evaluation in his asymptomatic at this time. NIH stroke scale is 0. I do think that the best course of action is reassurance. Certainly differential diagnosis could include but not limited to acute cerebrovascular accident myocardial infarction aortic dissection pneumonia musculoskeletal shoulder pain nerve entrapment. Lab Data Labs: Lab Results 03/06/25 Range/Units 21:48 WBC 6.45 (4.50-11.00) K/uL RBC 4.98 (4.00-5.20) m/uL Hgb 14.7 (12.0-16.0) gm/dL Hct 42.5 (33.0-51.0) % MCV 85 (80-100) fL MCH 30 (26-34) pg MCHC 35 (32-36) gm/dL RDW Coeff of Vanessa 13.2 (11.5-15.5) % Plt Count 270 (140-440) K/uL Neut % (Auto) 47.4 (42.0-72.0) % Lymph % (Auto) 43.9 (20-44) % Obion % (Auto) 5.7 (0.0-11.0) % Eos % (Auto) 2.3 (0.0-7.0) % Baso % (Auto) 0.5 (0.0-3.0) % Neut # (Auto) 3.06 (1.7-7.0) K/uL Lymph # (Auto) 2.83 (0.90-2.90) K/uL Obion # (Auto) 0.40 (0.00-0.90) K/UL Eos # (Auto) 0.15 (0.00-0.50) K/uL Baso # (Auto) 0.03 (0.00-0.30) K/uL Abs Immat Gran (auto) 0.01 (0.00-0.30) K/uL Imm/Tot Granulo (auto) 0.2 % Sodium 141 (135-149) mmol/L Potassium 3.4 L (3.6-5.1) mmol/L Chloride 102 (96-114) mmol/L Carbon Dioxide 29 (20-32) mmol/L Anion Gap 10 (7-15) mEq/L BUN 25 (7-30) mg/dL Creatinine 0.9 (0.5-1.5) mg/dL Estimated Creat Clear 60.99 Estimated GFR 76 ml/min Glucose 90 (60-115) mg/dL Calcium 9.5 (8.4-10.6) mg/dL Troponin I < 0.01 (0.01-0.04) ng/mL Discharge Plan Discharge Clinical Impression: Cervical nerve root impingement Patient Disposition: Home, Self-Care Condition: Stable Additional Instructions: Symptomatic treatment with Tylenol and Motrin Monitor symptoms Follow-up with your doctor if symptoms recur. Activity Level: No Restrictions Discharge Diet: Regular Prescriptions: No Action cholecalciferol (vitamin D3) 125 mcg (5,000 unit) capsule 5,000 unit PO DAILY triamterene 100 mg capsule 100 mg PO lansoprazole 30 mg capsule,delayed release(DR/EC) 30 mg PO BID Rx Instructions: TAKE 30 MINUTES PRIOR TO BREAKFAST OR FIRST MAIN MEAL OF THE DAY potassium chloride 20 mEq tablet,ER particles/crystals 10 meq PO BID mometasone 50 mcg/actuation spray,non-aerosol 2 spray intranasal QDAY Rx Instructions: administer into each nostril venlafaxine 37.5 mg capsule,extended release 24hr 37.5 mg PO DAILY cyclobenzaprine 10 mg tablet 10 mg PO .Bedtime as needed PRN azithromycin [Zithromax Z-Carlitos] 250 mg tablet See Rx Instructions PO .COMPLEX Qty: 6 0RF Rx Instructions: For 250 mg dose pack: take 500 mg today (day 1), then 250 mg for 4 days (days 2-5) PO prednisone 20 mg tablet 20 mg PO BID Qty: 10 0RF cyclobenzaprine 10 mg tablet 10 mg PO TID PRN (Reason: muscle spasm) Qty: 30 0RF Follow Up/Referrals: Ivelisse Nina AGRICULTURAL ENGINEER [Primary Care Provider, Family Practice] Stand Alone Forms: [facility] Info Instructions
[2025-03-06 22:10] LABS: Hematocrit 42.5 % (33.0-51.0); Hemoglobin* 14.7 gm/dL (12.0-16.0); Immature Granulocytes Abs Auto 0.01 K/uL (0.00-0.30); Immature Granulocytes Pct Auto 0.2 %; Lymphocytes Absolute Auto 2.83 K/uL (0.90-2.90); Mean Corpuscular HGB Conc 35 gm/dL (32-36); Mean Corpuscular Hemoglobin 30 pg (26-34); Mean Corpuscular Volume 85 fL (80-100); RDW Coefficient of Variation % 13.2 % (11.5-15.5); Red Blood Count 4.98 m/uL (4.00-5.20); White Blood Count* 6.45 K/uL (4.50-11.00)
[2025-03-06 22:11] LABS: Slide Review Reflex No
[2025-03-06 22:26] LABS: Chloride* 102 mmol/L (96-114); Potassium* 3.4 mmol/L (3.6-5.1); Sodium* 141 mmol/L (135-149)
[2025-03-06 22:29] LABS: Anion Gap 10 mEq/L (7-15); Blood Urea Nitrogen* 25 mg/dL (7-30); Calcium* 9.5 mg/dL (8.4-10.6); Carbon Dioxide* 29 mmol/L (20-32); Creatinine* 0.9 mg/dL (0.5-1.5); Est. Creatinine Clearance* 60.99; Estimated Glomerular Filt Rate 76 ml/min; Glucose* 90 mg/dL (60-115)
== END 2025-03-06 22:57 | disposition home or self-care (01) ==
PROVIDERS: Emergency Provider Internal Medicine; PCP Family Medicine
DX: G54.2 Cervical root disorders, not elsewhere classified (principal)
CPT/HCPCS: 36415; 71045; 80048; 84484; 85025; 99283